=== PATIENT | female | born 2000 | race American Indian/Alaskan Native ===

== ENCOUNTER 2020-02-14 18:19 | Emergency (ER) | payer MEDICAID ==
[2020-02-14 18:29] VITALS: BP 132/87
[2020-02-14 20:12] LABS: Basophils % (Auto) 0.5 % (0.0-1.8); Eosinophils % (Auto) 0.5 % (0.0-4.3); Hematocrit 39.7 % (30.3-42.9); Hemoglobin 12.4 gm/dl (10.1-14.3); Lymphocytes # (Auto) 1.7 K/mm3 (1.2-5.4); Lymphocytes % (Auto) 45.5 % (13.4-35.0); Mean Corpuscular HGB Conc 31 % (30-34); Mean Corpuscular Volume 79 fl (79-97); Monocytes # (Auto) 0.4 K/mm3 (0.0-0.8); Monocytes % (Auto) 11.8 % (0.0-7.3); Platelet Count 240 K/mm3 (140-440); Red Blood Count 5.02 M/mm3 (3.65-5.03); Red Cell Distribution Width 15.9 % (13.2-15.2)
[2020-02-14 20:27] LABS: Bacteria,Urine 1+ /HPF (Negative); Bilirubin,Urine NEG (Negative); Blood,Urine LG (Negative); Color,Urine Yellow (Yellow); Mucus,Urine 3+ /HPF; Protein,Urine <15 mg/dL mg/dL (Negative)
--- NOTE | 2020-02-14 22:32 | Emergency Department Report ---
ED General Adult HPI - General Chief complaint: Vaginal Bleeding Stated complaint: LOST OF TASTE AND SMELL Time Seen by Provider: 02/14/20 22:26 Source: patient Mode of arrival: Ambulatory Limitations: No Limitations - History of Present Illness Initial comments: 19-year-old -[place] female presents to the emergency room complaining of abnormal vaginal bleeding with left arm Implanon since June 2018. Patient states that she is followed by [facility] and has not seen her doctor since June 2018. Patient states that she has talked to the office regarding this complaint and they inform her that this will get better. Patient second compla int reports that she has been having body aches and loss of taste and smell. Patient denies any fever chills no nausea no vomiting no shortness of breath no chest pain no diarrhea no sore throat. Onset/Timin -: days(s), month(s) (18 months for abnormal vaginal bleeding secondary control) Consistency: intermittent Improves with: none Worsens with: none Associated Symptoms: loss of appetite. denies: cough, diaphoresis, fever/chills, nausea/vomiting, rash, shortness of breath Treatments Prior to Arrival: none - Related Data Allergies Allergy/AdvReac Type Severity Reaction Status Date / Time No Known Allergies Allergy Unverified 02/14/20 18:23 ED Review of Systems ROS: Stated complaint: LOST OF TASTE AND SMELL Other details as noted in HPI Comment: All other systems reviewed and negative ED Past Medical Hx - Past Medical History Previous Medical History?: No - Surgical History Past Surgical History?: No - Social History Smoking Status: Never Smoker Substance Use Type: None ED Physical Exam - General Limitations: No Limitations General appearance: alert, in no apparent distress - Head Head exam: Present: atraumatic, normocephalic - ENT ENT exam: Present: mucous membranes moist - Respiratory Respiratory exam: Present: normal lung sounds bilaterally. Absent: respiratory distress - Cardiovascular Cardiovascular Exam: Present: regular rate, normal rhythm. Absent: systolic murmur, diastolic murmur, rubs, gallop - Neurological Exam Neurological exam: Present: alert, oriented X3, normal gait - Psychiatric Psychiatric exam: Present: normal affect, normal mood - Skin Skin exam: Present: warm, dry, intact, normal color. Absent: rash ED Course Vital Signs 02/14/20 18:25 Temperature 98.3 F Pulse Rate 105 H Respiratory 18 Rate Blood Pressure 132/87 O2 Sat by Pulse 99 Oximetry ED Medical Decision Making - Lab Data Result diagrams: 02/14/20 19:56 - Medical Decision Making 19-year-old -[place] female presents to the emergency room complaining of abnormal vaginal bleeding with left arm Implanon since June 2018. Patient states that she is followed by [facility] and has not seen her doctor since June 2018. Patient states that she has talked to the office regarding this complaint and they inform her that this will get better. Patient second complaint reports that she has been having body aches and loss of taste and smell. Patient denies any fever chills no nausea no vomiting no shortness of breath no chest pain no diarrhea no sore throat. Patient's labs are stable. Discussed with patient that she needs to follow-up with an [facility] and referral given to her for community COVID testing at [facility]. Informed patient she can self quarantine for the next 14 days. Critical care attestation.: If time is entered above; I have spent that time in minutes in the direct care of this critically ill patient, excluding procedure time. ED Disposition Clinical Impression: Dysfunctional uterine bleeding, Generalized body aches Is pt being admited?: No Does the pt Need Aspirin: No Condition: Stable Additional Instructions: Discussed with patient that she needs to follow-up with an [facility] and referral given to her for community COVID testing at [facility]. Informed patient she can self quarantine for the next 14 days. Tylenol or ibuprofen for body aches. Referrals: [facility] [Primary Care Provider] - 3-5 Days [facility] [Provider Group] - 3-5 Days [facility] [Provider Group] - 3-5 Days [facility] [Provider Group] - 3-5 Days Forms: Work/School Release Form(ED)
== END 2020-02-14 22:40 | disposition home or self-care (01) ==
LOC: ED 18:19
DX: N93.8 Other specified abnormal uterine and vaginal bleeding (principal); M79.18 Myalgia, other site
CPT/HCPCS: 36415; 81001; 84702; 85025; 99283

== ENCOUNTER 2020-07-04 23:34 | Emergency (ER) | payer MEDICAID ==
[2020-07-05 00:04] VITALS: BP 143/83
[2020-07-05 01:13] LABS: Basophils % (Auto) 0.3 % (0.0-1.8); Eosinophils # (Auto) 0.2 K/mm3 (0.0-0.4); Eosinophils % (Auto) 1.8 % (0.0-4.3); Hematocrit 36.7 % (30.3-42.9); Lymphocytes # (Auto) 2.7 K/mm3 (1.2-5.4); Mean Corpuscular HGB Conc 33 % (30-34); Mean Corpuscular Volume 79 fl (79-97); Monocytes # (Auto) 0.7 K/mm3 (0.0-0.8); Monocytes % (Auto) 7.4 % (0.0-7.3); Platelet Count 251 K/mm3 (140-440); Red Blood Count 4.65 M/mm3 (3.65-5.03); Red Cell Distribution Width 15.6 % (13.2-15.2)
[2020-07-05 01:26] LABS: Alanine Aminotransferase 7 units/L (7-56); Albumin 3.6 g/dL (3.9-5); Blood Urea Nitrogen 8 mg/dL (7-17); Calcium 9.1 mg/dL (8.4-10.2); Hemolysis Index 1
[2020-07-05 01:36] LABS: BUN/Creatinine Ratio 16
[2020-07-05 02:27] LABS: Bacteria,Urine 1+ /HPF (Negative); Bilirubin,Urine NEG (Negative); Blood,Urine SM (Negative); Color,Urine Yellow (Yellow); Mucus,Urine FEW /HPF; Protein,Urine <15 mg/dL mg/dL (Negative)
[2020-07-05] MEDS ORDERED: ONDANSETRON 4 MG ODT TAB PO ONE (03:01)
[2020-07-05] MEDS ORDERED: DICYCLOMINE 20 MG/2 ML INJ IM ONE (03:01)
--- NOTE | 2020-07-05 04:25 | Cat Scan Report ---
CT ABDOMEN AND PELVIS WITH CONTRAST INDICATION / CLINICAL INFORMATION: Pt complains of diffuse lower abdominal pain. TECHNIQUE: Axial CT images were obtained through the abdomen and pelvis after 100 mL Omnipaque [address] scans at this location are performed using CT dose reduction for ALARA by means of automated exposure control. COMPARISON: None available. FINDINGS: LOWER CHEST: No significant abnormality. LIVER: No significant abnormality. BILIARY SYSTEM: No significant abnormality. PANCREAS: No significant abnormality. SPLEEN: No significant abnormality. ADRENALS: No significant abnormality. KIDNEYS and URETERS: No significant abnormality. STOMACH / BOWEL: No significant abnormality. The appendix is normal. PERITONEUM: No free fluid. No free air. No fluid collection. LYMPH NODES: No significant adenopathy. VASCULAR STRUCTURES: No significant abnormality. URINARY BLADDER: No significant abnormality. REPRODUCTIVE ORGANS: No significant abnormality. ADDITIONAL FINDINGS: None. SKELETAL SYSTEM: No significant abnormality. IMPRESSION: 1. No acute process identified within the abdomen or pelvis to account for patient's abdominal pain. Signer Name: Marta Cruz MD Signed: 07/05/2020 4:21 AM Workstation Name: [id number]
--- NOTE | 2020-07-05 04:47 | Emergency Department Report ---
ED Abdominal Pain HPI - General Chief Complaint: Abdominal Pain Stated Complaint: LOWER ABD PAIN/VAGINAL PAIN Source: patient Mode of arrival: Ambulatory Limitations: No Limitations - History of Present Illness Initial Comments: Patient is a A0 20-year-old -[place] female with a history of obesity who presents to the ED with complaint of acute onset persistent low back pain that radiates to the lower abdomen diffusely for the last 2 days. Patient states that the pain is worse with any movements. Patient denies nausea, vomiting, diarrhea, dysuria, urinary frequency and urgency, vaginal bleeding, vaginal discharge, chest pain, shortness of breath, fever, chills, cough, traumatic injury, heavy lifting, numbness and tingling or weakness of lower extremities bilaterally. MD Complaint: abdominal pain, other (Low back pain) -: Sudden, days(s) (2) Location: suprapubic Radiation: back (Low back) Migration to: no migration Severity: severe Severity scale (0 -10): 7 Quality: aching, sharp Consistency: constant Improves With: nothing Worsens With: movement Associated Symptoms: denies other symptoms, anorexia. denies: nausea, vomiting, diarrhea, fever, chills, constipation, dysuria, hematemesis, hematochezia, melena, syncope, other - Related Data Previous Rx's Medication Instructions Recorded Last Taken Type Cyclobenzaprine [Flexeril] 10 mg PO TID PRN #21 tablet 07/05/20 Unknown Rx Ibuprofen [Motrin] 800 mg PO Q8HR PRN #30 tablet 07/05/20 Unknown Rx Allergies Allergy/AdvReac Type Severity Reaction Status Date / Time No Known Allergies Allergy Unverified 02/14/20 18:23 ED Review of Systems ROS: Stated complaint: LOWER ABD PAIN/VAGINAL PAIN Other details as noted in HPI Constitutional: denies: chills, fever Eyes: denies: eye pain, eye discharge, vision change ENT: denies: ear pain, throat pain Respiratory: denies: cough, shortness of breath, wheezing Cardiovascular: denies: chest pain, palpitations Endocrine: no symptoms reported Gastrointestinal: abdominal pain (Suprapubic pain). denies: nausea, diarrhea Genitourinary: denies: urgency, dysuria, discharge Musculoskeletal: back pain (Low back pain). denies: joint swelling, arthralgia Skin: denies: rash, lesions Neurological: denies: headache, weakness, paresthesias Psychiatric: denies: anxiety, depression Hematological/Lymphatic: denies: easy bleeding, easy bruising ED Past Medical Hx - Past Medical History Previous Medical History?: No - Surgical History Past Surgical History?: No - Social History Smoking Status: Never Smoker Substance Use Type: None - Medications Home Medications: Home Medications Medication Instructions Recorded Confirmed Last Taken Type Cyclobenzaprine [Flexeril] 10 mg PO TID PRN #21 tablet 07/05/20 Unknown Rx Ibuprofen [Motrin] 800 mg PO Q8HR PRN #30 tablet 07/05/20 Unknown Rx ED Physical Exam - General Limitations: No Limitations General appearance: alert, in no apparent distress - Head Head exam: Present: atraumatic, normocephalic, normal inspection - Eye Eye exam: Present: normal appearance, PERRL, EOMI Pupils: Present: normal accommodation - ENT ENT exam: Present: normal exam, normal orophraynx, mucous membranes moist, TM's normal bilaterally, normal external ear exam - Neck Neck exam: Present: normal inspection, full ROM - Respiratory Respiratory exam: Present: normal lung sounds bilaterally. Absent: respiratory distress, wheezes, rales, stridor, chest wall tenderness, accessory muscle use, decreased breath sounds - Cardiovascular Cardiovascular Exam: Present: regular rate, normal rhythm, normal heart sounds. Absent: systolic murmur, diastolic murmur, rubs, gallop - GI/Abdominal GI/Abdominal exam: Present: soft, tenderness (Palpable diffuse lower abdominal tenderness), normal bowel sounds. Absent: guarding, rebound - Bi-manual exam: Present: other (Pelvic exam deferred patient declined) - Extremities Exam Extremities exam: Present: normal inspection, full ROM, normal capillary refill. Absent: tenderness, pedal edema, joint swelling - Back Exam Back exam: Present: normal inspection, full ROM, tenderness (Palpable lumbosacral paraspinal musculoskeletal tenderness), muscle spasm, paraspinal tenderness - Neurological Exam Neurological exam: Present: alert, oriented X3, CN II-XII intact, normal gait, reflexes normal - Psychiatric Psychiatric exam: Present: normal affect, normal mood - Skin Skin exam: Present: warm, dry, intact, normal color. Absent: rash ED Course Vital Signs 07/05/20 00:01 Temperature 98.1 F Pulse Rate 77 Respiratory 17 Rate Blood Pressure 143/83 O2 Sat by Pulse 99 Oximetry ED Medical Decision Making - Lab Data Result diagrams: 07/05/20 00:25 07/05/20 00:25 - Radiology Data Radiology results: report reviewed, image reviewed Findings [facility] [address] [place] [address] Cat Scan Report Signed Patient: LEE BLAIR MR #: [id number] : 2000 Acct:[id number] Age/Sex: 20 / F ADM Date: 07/04/20 Loc: ED Attending Dr: Ordering Physician: SANTY WHITTAKER Date of Service: 07/05/20 Procedure(s): CT abdomen pelvis w con Accession Number(s): [id number] cc: SANTY WHITTAKER CT ABDOMEN AND PELVIS WITH CONTRAST INDICATION / CLINICAL INFORMATION: Pt complains of diffuse lower abdominal pain. TECHNIQUE: Axial CT images were obtained through the abdomen and pelvis after 100 mL Omnipaque [address] scans at this location are performed using CT dose reduction for ALARA by means of automated exposure control. COMPARISON: None available. FINDINGS: LOWER CHEST: No significant abnormality. LIVER: No significant abnormality. BILIARY SYSTEM: No significant abnormality. PANCREAS: No significant abnormality. SPLEEN: No significant abnormality. ADRENALS: No significant abnormality. KIDNEYS and URETERS: No significant abnormality. STOMACH / BOWEL: No significant abnormality. The appendix is normal. PERITONEUM: No free fluid. No free air. No fluid collection. LYMPH NODES: No significant adenopathy. VASCULAR STRUCTURES: No significant abnormality. URINARY BLADDER: No significant abnormality. REPRODUCTIVE ORGANS: No significant abnormality. ADDITIONAL FINDINGS: None. SKELETAL SYSTEM: No significant abnormality. IMPRESSION: 1. No acute process identified within the abdomen or pelvis to account for patient's abdominal pain. Signer Name: Marta Cruz MD Signed: 07/05/2020 4:21 AM Workstation Name: [id number] Transcribed By: [facility] Dictated By: Marta Cruz MD Electronically Authenticated By: Marta Cruz MD Signed Date/Time: 07/05/20 042 DD/ 6 TD/TT: - Medical Decision Making This is a A0 20-year-old -[place] female with a history of obesity who presents to the ED with complaint of acute onset persistent low back pain that radiates to the lower abdomen diffusely for the last 2 days. Patient states that the pain is worse with any movements. In the ED, patient is alert and oriented x3 and is not in distress. Patient was treated for pain in the ED. Lab test results were reviewed and are all nonactionable. Abdomen pelvis CT scan with contrast showed no acute abnormalities. On reevaluation, patient's pain is well controlled medications. Patient was discharged home on pain medications and muscle relaxants and was advised to follow-up with her primary care physician in 5 to 7 days for reevaluation or return to the ED immediately if symptoms get worse. - Differential Diagnosis Ovarian cyst; appendicitis; plan; UTI; muscle spasm; dysmenorrhea Critical care attestation.: If time is entered above; I have spent that time in minutes in the direct care of this critically ill patient, excluding procedure time. ED Disposition Clinical Impression: Acute bilateral lower abdominal pain, Spasm of muscle of lower back Disposition: TO HOME OR SELFCARE Is pt being admited?: No Does the pt Need Aspirin: No Condition: Stable Instructions: Abdominal Pain (ED), Muscle Cramps and Spasms, [id number], Abdominal Pain, Adult, [id number] Additional Instructions: All lab test results were reviewed and are all nonactionable. Abdomen pelvis CT scan with contrast showed no acute abnormalities. Your symptoms are likely due to muscle spasm of lower back, dysmenorrhea or muscle strain. Therefore take m edication with food, drink plenty of fluids and follow-up with your primary care physician in 5 to 7 days for reevaluation. Return to the ED immediately if symptoms get worse. Prescriptions: Cyclobenzaprine [Flexeril] 10 mg PO TID PRN #21 tablet PRN Reason: Muscle Spasm Ibuprofen [Motrin] 800 mg PO Q8HR PRN #30 tablet PRN Reason: Pain , Severe (7-10) Referrals: [facility] [Provider Group] - 3-5 Days Time of Disposition: 04:46 Print Language: VIETNAMESE
== END 2020-07-05 05:26 | disposition home or self-care (01) ==
LOC: ED 23:34
DX: R10.30 Lower abdominal pain, unspecified (principal); M62.830 Muscle spasm of back; Z79.1 Long term (current) use of non-steroidal anti-inflammatories (NSAID); Z79.899 Other long term (current) drug therapy
CPT/HCPCS: 36415; 74177; 80053; 81001; 84703; 85025; 96372; 99284; J0500; Q9967; Q0162